=== PATIENT | female | born 1950 | race Caucasian/White ===

== ENCOUNTER 2019-03-02 14:08 | Emergency (ER) | payer OTHER ==
[~2019-03-02] VITALS: Ht 175.3 cm; Wt 80.3 kg
[2019-03-02] MEDS ORDERED: DEPAKOTE ER250 MG PO (14:22)
[2019-03-02] MEDS ORDERED: LISINOPRIL10 MG PO (14:22)
[2019-03-02] MEDS ORDERED: SYNTHROID25 MC1 PO (14:22)
[2019-03-02] MEDS ORDERED: TUMERIC PO (14:23)
[2019-03-02] MEDS ORDERED: VITAMINC500 PO (14:23)
[2019-03-02] MEDS ORDERED: AMINO ACID1 EACH PO (14:24)
[2019-03-02] MEDS ORDERED: L-LYSINE500 M1 PO (14:24)
[2019-03-02 14:28] LABS: HEMATOCRIT 38.5 % (37.0-47.0); HEMOGLOBIN 12.9 gm/dL (12.0-15.0); MCH 30.3 pg (26.0-34.0); MCHC 33.4 g/dL (28.0-37.0); MCV 90.5 fL (80.0-100.0); PLATELET COUNT 186 thou/uL (150-400); RBC 4.25 mil/uL (4.20-5.00); RDW 13.7 % (10.5-14.5); WBC 7.9 thou/uL (4.0-11.0)
[2019-03-02 14:37] LABS: ANION GAP 9 mmol/L (7-16); BUN 17 mg/dL (7-18); CALCIUM 9.2 mg/dL (8.5-10.1); CHLORIDE 97 mmol/L (98-107); CO2 30 mmol/L (21-32); CREATININE 1.1 mg/dL (0.6-1.0); GLUCOSE 100 mg/dL (74-106); POTASSIUM 3.5 mmol/L (3.5-5.1); SODIUM 136 mmol/L (136-145)
[2019-03-02 14:47] LABS: ALBUMIN 3.3 g/dL (3.4-5.0); SGOT 18 U/L (15-37); SGPT 23 U/L (30-65); TOTAL BILIRUBIN 0.4 mg/dL (<0.1-1.0); TOTAL PROTEIN 7.6 g/dL (6.4-8.2); TROPONIN-I <0.06 ng/mL (<0.06)
[2019-03-02 14:53] LABS: ABSOLUTE NEUTROPHILS 5.2 thou/uL (1.4-8.2)
[2019-03-02] MEDS ORDERED: DOXYCYCLINE 10100 MG PO (16:24)
[2019-03-02 16:34] VITALS: BP 125/57
--- NOTE | 2019-03-03 08:17 | EKG ---
[place] [address] [facility] [place] [address] ELECTROCARDIOGRAM REPORT Name: DELMISFCO Room #: [id number] Admission: 03/02/19 Attend Phys: Discharge: 03/02/19 Date of : 54 Report #: [id number] THIS REPORT FOR: //name// [facility] ED Test Date: 2019-03-02 Test Time: 14:13:52 Pat Name: FCO BENITES Department: Room: Gender: F Hotel Front Desk Clerk: : 1950 Requested By: Jeff García Order Number: [id number] MD: Wolf Romero Measurements Intervals [place] Rate: 86 P: 58 [place]: 127 QRS: 3 QRSD: 87 T: 43 QT: 343 QTc: 411 Interpretive Statements Sinus rhythm Nonspecific ST segment abnormality No previous ECG available for comparison Electronically Signed On 03-03-2019 8:17:41 CDT by Wolf Romero [email or web address] <ELECTRONICALLY SIGNED> By: Wolf Romero MD, [facility] 03/03/19 0817 1413 1413 Wolf Romero MD, FAC /EPI
== END 2019-03-02 16:35 | disposition home or self-care (01) ==
LOC: ER 14:08
PROVIDERS: Physician Assistant
DX: J18.9 Pneumonia, unspecified organism (principal); R07.89 Other chest pain; R09.1 Pleurisy; Z90.49 Acquired absence of other specified parts of digestive tract; Z90.710 Acquired absence of both cervix and uterus; Z90.10 Acquired absence of unspecified breast and nipple; Z91.041 Radiographic dye allergy status; Z88.2 Allergy status to sulfonamides; Z88.1 Allergy status to other antibiotic agents; Z87.891 Personal history of nicotine dependence